=== PATIENT | male | born 1960 | race Caucasian/White ===

== ENCOUNTER 2017-12-06 14:32 | Observation (INO) | payer OTHER ==
[~2017-12-06] VITALS: Ht 175.3 cm; Wt 83.9 kg
[2017-12-06 15:36] VITALS: BP 129/71
[2017-12-06 15:44] LABS: INR 1.76 (0.9-1.15); Partial Thromboplastin Time 39.9 sec (23.78-33.04); Prothrombin Time 18.2 sec (9.27-12.13)
[2017-12-06 15:52] LABS: Albumin 3.2 g/dL (3.4-5.0); BUN/Creatinine Ratio 28.7; Calcium 8.8 mg/dL (8.5-10.1); Magnesium 2.4 mg/dL (1.6-2.6); Potassium 3.6 mmol/L (3.5-5.1); Total Protein 8.4 g/dL (6.4-8.2)
[2017-12-06 16:04] LABS: Hematocrit 27.1 % (41.0-53.0); Mean Corpuscular Hemoglobin 29.8 pg (28.0-32.0); Mean Corpuscular Hgb Conc. 33.3 g/dL (32.0-36.0); Mean Corpuscular Volume 89.6 fL (80.0-100.0); Platelet Count (auto) 406 10^3/uL (140-450); Red Blood Cells 3.02 10^6/uL (4.5-5.90); Red Cell Distribution Width 17.7 % (11.8-14.3); White Blood Cell 16.9 10^3/uL (4.4-10.8)
[2017-12-06 16:09] LABS: Basophils % (manual) 0 (0.0-2.0); Blast Cells 0; Myelocytes % 0; Promyelocytes % 0; Reactive Lymphocytes 0
[2017-12-06] MEDS ORDERED: cefTRIAXone 1GM/10ml IVPUSH 10 ML IV ONE (17:15)
[2017-12-06 18:08] LABS: Band Neutrophils % (manual) 4; Eosinophils % (manual) 1 (0-7); Lymphocytes % (manual) 4 (10.0-50.0); Metamyelocytes % 1; Monocytes % (manual) 3 (0-12)
== END 2017-12-06 18:55 | disposition home or self-care (01) | DRG 150 ==
LOC: EDBD 14:32 → ER 14:32 → OVERFLOW 14:33 → ER 18:55
PROVIDERS: ADMIT Family Medicine; ATTEND Family Medicine
DX: R04.0 Epistaxis (principal); J18.1 Lobar pneumonia, unspecified organism; R74.0 Nonspecific elevation of levels of transaminase and lactic acid dehydrogenase [LDH]; I10 Essential (primary) hypertension; E78.5 Hyperlipidemia, unspecified; Z79.01 Long term (current) use of anticoagulants; Z95.2 Presence of prosthetic heart valve
CPT/HCPCS: 36415; 71045; 80053; 83735; 84484; 85007; 85027; 85610; 85730; 96374; 99285; G0378; J0696

== ENCOUNTER 2019-05-27 10:22 | Emergency (ER) | payer BC, OTHER ==
[~2019-05-27] VITALS: Ht 180.3 cm; Wt 72.6 kg
[2019-05-27] MEDS ORDERED: DOPamine 1600MCG/ML D5W 250 ML IV ONE ×2 (11:01→11:15)
[2019-05-27] MEDS ORDERED: SODIUM CHLORIDE 0.9% 1,000 ML IV ONE (11:05)
[2019-05-27] MEDS ORDERED: SODIUM CHLORIDE 0.9% 500 ML IVB ONE (11:05)
[2019-05-27] MEDS ORDERED: ONDANSETRON HCL 4 MG/2 ML VIAL ONE (11:15)
[2019-05-27 11:21] LABS: Basophils # (auto) 0 10 ^3/uL (0-0.2); Eosinophils # (auto) 0 10 ^3/uL (0-0.8); Hematocrit 46.9 % (41.0-53.0); Hemoglobin 15.6 g/dL (13.5-17.5); Lymphocytes # (auto) 0.2 10 ^3/uL (0.4-5.4); Lymphocytes % (auto) 1.7 % (10.0-50.0); Mean Corpuscular Hemoglobin 31.3 pg (28.0-32.0); Mean Corpuscular Hgb Conc. 33.3 g/dL (32.0-36.0); Mean Corpuscular Volume 94.2 fL (80.0-100.0); Monocytes # (auto) 0.8 10 ^3/uL (0-1.3); Monocytes % (auto) 5.6 % (0.0-12.0); Neutrophils # (auto) 13.6 10 ^3/uL (1.6-8.6); Neutrophils % (auto) 92.7 % (37.0-80.0); Nucleated Red Blood Cells % 0.1 %; Platelet Count (auto) 179 10^3/uL (140-450); Red Blood Cells 4.98 10^6/uL (4.5-5.90); Red Cell Distribution Width 14.7 % (11.8-14.3); White Blood Cell 14.6 10^3/uL (4.4-10.8)
[2019-05-27 11:44] LABS: BUN/Creatinine Ratio 15.1; Calcium 9.3 mg/dL (8.5-10.1); Magnesium 2.5 mg/dL (1.6-2.6); Total Protein 9.5 g/dL (6.4-8.2)
[2019-05-27] MEDS ORDERED: ONDANSETRON HCL 4 MG/2 ML VIAL IV ONE (11:45)
[2019-05-27] MEDS ORDERED: LIDOCAINE HCL 2% TOP JELLY 5ML TOP ONE (12:16)
[2019-05-27 12:43] LABS: INR 2.97 (0.9-1.15); Partial Thromboplastin Time 41.8 sec (23.64-32.05)
[2019-05-27 12:50] LABS: Urine Bacteria NONE SEEN /hpf (None Seen); Urine Blood Negative /uL (Negative); Urine Mucus FEW (None Seen); Urine Specific Gravity 1.026 (1.001-1.035); Urine WBC 1 /hpf (0 - 3)
[2019-05-27 13:04] LABS: Alcohol, Urine < 3.0 mg/dL (0-5); Amphetamine Screen, Urine NEGATIVE (NEGATIVE); Barbiturate Scree,Urine NEGATIVE (NEGATIVE); Benzodiazephine Screen, Urine NEGATIVE (NEGATIVE); Cannabinoid Screen, Urine NEGATIVE (NEGATIVE); Cocaine Screen, Urine NEGATIVE (NEGATIVE); Opiate Scree,Urine NEGATIVE (NEGATIVE); Phencyclidine Screen, Urine NEGATIVE (NEGATIVE)
[2019-05-27] MEDS ORDERED: MIDAZOLAM HCL 5 MG/ML-1ML VIAL ONE (13:36)
[2019-05-27] MEDS ORDERED: MIDAZOLAM DRIP 50 mg/50mL 50 ML IV ONE (13:36)
[2019-05-27] MEDS ORDERED: MIDAZOLAM DRIP 50 mg/50mL 50 ML IV SCH (13:37)
[2019-05-27] MEDS ORDERED: PHYTONADIONE (VIT K)10 MG/ML 1ML VIAL SUBCUT ONE (13:45)
[2019-05-27] MEDS ORDERED: PHYTONADIONE (VIT K)10 MG/ML 1ML VIAL IV ONE (13:45)
[2019-05-27] MEDS ORDERED: MIDAZOLAM HCL 5 MG/ML-1ML VIAL IV ONE (13:45)
[2019-05-27 14:31] VITALS: BP 122/58
== END 2019-05-27 13:50 | disposition short-term general hospital (02) ==
LOC: ER 10:22 → EDBD 10:22 → ER 13:50
DX: I25.10 Atherosclerotic heart disease of native coronary artery without angina pectoris (principal); R00.1 Bradycardia, unspecified; I11.0 Hypertensive heart disease with heart failure; I50.9 Heart failure, unspecified; I61.9 Nontraumatic intracerebral hemorrhage, unspecified; R79.89 Other specified abnormal findings of blood chemistry
CPT/HCPCS: 31500; 36415; 36600; 70450; 71045; 80053; 80307; 81001; 82805; 83735; 84443; 84484; 85025; 85610; 85730; 87070; 87205; 93005; 96361; 96372; 96374; 96375; 99291; J1265; J2250; J2405; J3430; J7060; 94002